=== PATIENT | male | born 1950 | race Caucasian/White ===

== ENCOUNTER → 2017-04-06 | Outpatient (CLI) | payer MEDICARE ==
[~2017-04-06] MED LIST: CIPRO PO; FLOMAX0.4 MG PO; NAPROXEN; NO MEDICATIONS; OXAYDO7.5 MG PO; PERCOCET 7.5-31 EACH PO; TYLOX 5/500 CAP1 CAP PO; VICOPROFEN 200-1 TAB PO; [UNRECOGNIZED DRUG - OTHER]
--- NOTE | ~2017-04-06 | CT55 ---
[facility] A Service of [facility] RADIOLOGY TEXT RESULTS PATIENT: SR INDRA COATES LOCATION: [facility] : 48 UNIT #: [id number] AGE: [address]: Kenny Oliver MD SEX: M ORDER DR: [id number] [place], [place] [address] [id number] O MR#: [id number] Acc #: [id number] NAME: INDRA COATES : 1950 SEX: M STUDY DATE/TIME: 04/06/2017 14:50 UNIT: [facility] ROOM: STUDY DESCRIPTION: CT Chest W Con Attending Physician: Kenny Oliver M.D. Referring Physician: Kenny Oliver M.D. Ordering Physician: Kenny Oliver M.D. Primary Care Physician: Royer Angelo M.D. MEDICAL IMAGING REPORT This report is preliminary unless electronic signature is present EXAM CT scan of the chest 04/06/2017 HISTORY Renal cell carcinoma of the skin. Flu-like symptoms off and on for a year. Weakness. Blurred vision. Night sweats. Patient had contact with hazardous material at work years ago. TECHNIQUE Patient was given 100 cc of Isovue-370 and axial 5 mm images were obtained through the chest. Sagittal and coronal reconstructions were generated. This CT exam was performed with one or more of the following radiation dose reduction techniques: automatic exposure control, adjustment of mA and/or kV according to patient size, and iterative reconstruction. FINDINGS There is some minimal scarring in the right upper lobe laterally, abutting the pleura, benign appearance. Otherwise, the lungs are clear. The visualized thyroid gland is normal. The heart is of normal size. There is no mediastinal or hilar adenopathy. Visualized portion of the upper abdomen shows mild enlargement of the liver. There is no evidence of metastatic disease. Bones are unremarkable. IMPRESSION 1. Minimal scarring right upper lobe laterally. 2. Slight hepatomegaly. 3. Otherwise, study is normal. Dictated by... [facility] A Service of [facility] RADIOLOGY TEXT RESULTS PATIENT: SR INDRA COATES LOCATION: [facility] : 48 UNIT #: [id number] AGE: [address]: Kenny Oliver MD SEX: M ORDER DR: Yair Dickens M.D. THIS IS AN ELECTRONICALLY VERIFIED REPORT Yair Dickens M.D. at 04/08/2017 6:24 AM FEL/pcl TD: 04/07/2017 19:38 JOB #: [id number] MEDICAL IMAGING REPORT Page 1 of 1 COPY
[2017-04-06 14:45] LABS: POC - CREATININE 1.22 mg/dL (0.64-1.27); POC - GFR >60.0 mL/min (>60)
== END | disposition home or self-care (01) ==
LOC: CCAT 13:58
PROVIDERS: Internal Medicine Medical Oncology
DX: C44.111 Basal cell carcinoma of skin of unspecified eyelid, including canthus (principal); R16.0 Hepatomegaly, not elsewhere classified; Z77.098 Contact with and (suspected) exposure to other hazardous, chiefly nonmedicinal, chemicals
CPT/HCPCS: 71260; 82565; Q9967